=== PATIENT | male | born 1930 | race Caucasian/White ===

== ENCOUNTER 2018-01-31 13:17 | Inpatient (IN) | payer OTHER, BC ==
[~2018-01-31] VITALS: Ht 165.1 cm; Wt 65.0 kg
[2018-01-31 14:18] LABS: BASOPHIL (%) 0.3 % (0-1); BASOPHIL COUNT 0.1 K/uL (0-0.1); EOSINOPHIL (%) 0.3 % (0-5); EOSINOPHIL COUNT 0.1 K/uL (0-0.3); HEMATOCRIT 39.5 % (38.0-50.0); HEMOGLOBIN 13.9 G/DL (12.5-16.6); IMMATURE GRANULOCYTE (%) 0.7 % (0.0-0.7); LYMPHOCYTE (%) 15.9 % (15-42); LYMPHOCYTE COUNT 2.4 K/uL (1.0-2.8); MCH 32.6 PG (29.0-34.0); MCHC 35.2 G/DL (30.0-36.0); MCV 92.5 FL (86-99); MONOCYTE (%) 7.5 % (3-12); MONOCYTE COUNT 1.2 K/uL (0-0.8); NEUTROPHIL (%) 75.3 % (45-76); NEUTROPHIL COUNT 11.5 K/uL (1.8-6.4); PLATELET COUNT 154 K/uL (156-360); RBC DIS.WIDTH-CV 12.7 % (11.8-14.6); RED BLOOD COUNT 4.27 M/uL (4.00-5.50); WHITE BLOOD COUNT 15.3 K/uL (4.1-10.2)
[2018-01-31 14:23] LABS: INTER. NORMALIZED RATIO 1.2
[2018-01-31 14:28] LABS: CHLORIDE 100 mEq/L (99-109); POTASSIUM 4.2 mEq/L (3.7-5.4); SODIUM 135 mEq/L (136-147)
[2018-01-31 14:29] LABS: GLUCOSE 208 mg/dL (70-99)
[2018-01-31 14:33] LABS: GFR ESTIMATE (CALCULATED) 21 mL/min/ (58.99-99999)
[2018-01-31 14:34] LABS: UREA NITROGEN (BUN) 54 mg/dL (9-23)
[2018-01-31 14:39] LABS: TROP-I INTERPRETATION NEGATIVE; TROPONIN-I 0.11 ng/mL (0.0-0.30)
[2018-01-31 18:50] LABS: HEMATOCRIT 40.1 % (38.0-50.0); HEMOGLOBIN 14.1 G/DL (12.5-16.6); MCV 92.4 FL (86-99)
[2018-01-31 20:30] VITALS: BP 129/63
[2018-01-31 23:00] VITALS: BP 113/61
[2018-02-01 01:11] LABS: HEMATOCRIT 35.8 % (38.0-50.0); HEMOGLOBIN 12.2 G/DL (12.5-16.6); MCV 92.5 FL (86-99)
[2018-02-01] MEDS ORDERED: AMARYL4 MG PO (01:25)
[2018-02-01] MEDS ORDERED: FINASTERIDE5 MG PO (01:25)
[2018-02-01] MEDS ORDERED: DIOVAN160 MG PO (01:26)
[2018-02-01] MEDS ORDERED: FLOMAX0.4 MG PO (01:26)
[2018-02-01] MEDS ORDERED: BETAPROSTATE PO (01:28)
[2018-02-01] MEDS ORDERED: ASPIR 8181 M1 PO (01:29)
[2018-02-01] MEDS ORDERED: CENTRUM FLAVOR1 EAC1 PO (01:29)
[2018-02-01] MEDS ORDERED: PRESERVISION A1 EAC2 PO (01:30)
[2018-02-01] MEDS ORDERED: VITAMIN D32000 UNI1 PO (01:30)
[2018-02-01] MEDS ORDERED: GLUCOPHAGE500 MG PO (01:31)
[2018-02-01] MEDS ORDERED: CALCIUM 500 +1 EACH PO (01:31)
[2018-02-01] MEDS ORDERED: GABAPENTIN400 MG PO (01:32)
[2018-02-01] MEDS ORDERED: IMBRUVICA280 MG PO (01:33)
[2018-02-01] MEDS ORDERED: ALLOPURINOL100 MG PO (01:33)
[2018-02-01] MEDS ORDERED: RECLAST5 MG/100 M IV (01:34)
[2018-02-01] MEDS ORDERED: AMLODIPINE BESY10 MG PO (01:34)
[2018-02-01 04:40] VITALS: BP 115/63
[2018-02-01 04:43] LABS: HEMATOCRIT 33.8 % (38.0-50.0); HEMOGLOBIN 11.8 G/DL (12.5-16.6); MCH 32.2 PG (29.0-34.0); MCHC 34.9 G/DL (30.0-36.0); MCV 92.1 FL (86-99); PLATELET COUNT 140 K/uL (156-360); RBC DIS.WIDTH-CV 12.4 % (11.8-14.6); RBC DIS.WIDTH-SD 42.4 % (39-53); RED BLOOD COUNT 3.67 M/uL (4.00-5.50)
[2018-02-01 04:44] LABS: HEMATOCRIT 33.5 % (38.0-50.0); HEMOGLOBIN 11.7 G/DL (12.5-16.6); MCV 91.8 FL (86-99)
[2018-02-01 04:52] LABS: CHLORIDE 105 mEq/L (99-109); POTASSIUM 3.7 mEq/L (3.7-5.4); SODIUM 135 mEq/L (136-147)
[2018-02-01 04:58] LABS: UREA NITROGEN (BUN) 41 mg/dL (9-23)
[2018-02-01 05:13] LABS: CREATININE 1.3 mg/dL (0.6-1.3); GFR ESTIMATE (CALCULATED) 55 mL/min/ (58.99-99999); GLUCOSE 71 mg/dL (70-99)
[2018-02-01 05:42] LABS: APPEARANCE BLOODY ((CLEAR)); BILIRUBIN NEGATIVE; BLOOD LARGE; COLOR RED ((YELLOW)); GLUCOSE (STRIP) 150; KETONES NEGATIVE; LEUKOCYTES NEGATIVE; NITRITE NEGATIVE; PROTEIN (STRIP) >=500; SPECIFIC GRAVITY 1.024 (1.000-1.030); UROBILINOGEN 0.2 MG/DL (0.2-1.0)
[2018-02-01 05:43] LABS: RED BLOOD CELLS TNTC /HPF (0-5)
[2018-02-01 07:46] VITALS: BP 118/59
[2018-02-01 08:13] LABS: HEMATOCRIT 33.8 % (38.0-50.0); HEMOGLOBIN 11.6 G/DL (12.5-16.6); MCV 91.8 FL (86-99)
[2018-02-01 11:34] VITALS: BP 113/55
[2018-02-01 15:50] VITALS: BP 128/60
[2018-02-01 16:12] LABS: HEMATOCRIT 32.5 % (38.0-50.0); MCV 92.9 FL (86-99)
[2018-02-01 19:15] VITALS: BP 126/60
[2018-02-01 23:50] VITALS: BP 113/56
[2018-02-02 01:51] LABS: HEMATOCRIT 31.3 % (38.0-50.0); MCV 91.8 FL (86-99)
[2018-02-02 03:52] VITALS: BP 122/56
[2018-02-02 05:04] LABS: BASOPHIL (%) 0.6 % (0-1); BASOPHIL COUNT 0.1 K/uL (0-0.1); EOSINOPHIL (%) 3.2 % (0-5); EOSINOPHIL COUNT 0.3 K/uL (0-0.3); HEMATOCRIT 30.7 % (38.0-50.0); HEMOGLOBIN 10.5 G/DL (12.5-16.6); IMMATURE GRANULOCYTE (%) 0.7 % (0.0-0.7); LYMPHOCYTE (%) 31.1 % (15-42); LYMPHOCYTE COUNT 2.6 K/uL (1.0-2.8); MCH 31.7 PG (29.0-34.0); MCHC 34.2 G/DL (30.0-36.0); MCV 92.7 FL (86-99); MONOCYTE (%) 6.6 % (3-12); MONOCYTE COUNT 0.6 K/uL (0-0.8); NEUTROPHIL (%) 57.8 % (45-76); NEUTROPHIL COUNT 4.8 K/uL (1.8-6.4); PLATELET COUNT 120 K/uL (156-360); RBC DIS.WIDTH-CV 12.5 % (11.8-14.6); RBC DIS.WIDTH-SD 42.6 % (39-53); RED BLOOD COUNT 3.31 M/uL (4.00-5.50); WHITE BLOOD COUNT 8.4 K/uL (4.1-10.2)
[2018-02-02 07:22] VITALS: BP 149/68
[2018-02-02 11:19] LABS: CHLORIDE 111 MEQ/L (99-109); POTASSIUM 3.6 MEQ/L (3.7-5.4); SODIUM 138 MEQ/L (136-147)
[2018-02-02 11:24] LABS: GFR ESTIMATE (CALCULATED) > 59 mL/min/ (58.99-99999); GLUCOSE 81 mg/dL (70-99)
[2018-02-02 11:25] LABS: CREATININE 0.7 MG/DL (0.6-1.3); UREA NITROGEN (BUN) 19 mg/dL (9-23)
[2018-02-02 11:34] VITALS: BP 135/73
[2018-02-02 12:09] LABS: HEMATOCRIT 32.2 % (38.0-50.0); MCV 92.5 FL (86-99)
[2018-02-02 15:31] VITALS: BP 144/65
[2018-02-02 18:18] LABS: HEMATOCRIT 34.1 % (38.0-50.0); HEMOGLOBIN 11.6 G/DL (12.5-16.6); MCV 92.7 FL (86-99)
[2018-02-02 21:00] VITALS: BP 163/72
[2018-02-03 00:34] LABS: HEMATOCRIT 32.1 % (38.0-50.0); HEMOGLOBIN 11.2 G/DL (12.5-16.6); MCV 91.5 FL (86-99)
[2018-02-03 00:55] VITALS: BP 134/61
[2018-02-03 05:53] VITALS: BP 134/64
[2018-02-03 06:19] LABS: HEMATOCRIT 32.5 % (38.0-50.0); MCH 31.2 PG (29.0-34.0); MCHC 33.8 G/DL (30.0-36.0); MCV 92.1 FL (86-99); PLATELET COUNT 146 K/uL (156-360); RBC DIS.WIDTH-CV 12.4 % (11.8-14.6); RBC DIS.WIDTH-SD 41.2 % (39-53); RED BLOOD COUNT 3.53 M/uL (4.00-5.50); WHITE BLOOD COUNT 8.3 K/uL (4.1-10.2)
[2018-02-03 06:51] LABS: CHLORIDE 111 MEQ/L (99-109); CREATININE 0.8 MG/DL (0.6-1.3); GFR ESTIMATE (CALCULATED) > 59 mL/min/ (58.99-99999); POTASSIUM 3.8 MEQ/L (3.7-5.4); SODIUM 140 MEQ/L (136-147); UREA NITROGEN (BUN) 11 mg/dL (9-23)
[2018-02-03 06:56] LABS: GLUCOSE 102 mg/dL (70-99)
[2018-02-03 08:00] VITALS: BP 165/68
[2018-02-03 11:52] VITALS: BP 142/69
[2018-02-03 11:59] LABS: HEMATOCRIT 33.2 % (38.0-50.0); HEMOGLOBIN 11.3 G/DL (12.5-16.6); MCV 91.2 FL (86-99)
[2018-02-03 15:35] VITALS: BP 149/65
[2018-02-03 17:54] LABS: HEMATOCRIT 33.5 % (38.0-50.0); HEMOGLOBIN 11.5 G/DL (12.5-16.6); MCV 91.5 FL (86-99)
[2018-02-03 21:00] VITALS: BP 155/70
[2018-02-04] VITALS: BP 138/66
[2018-02-04 00:51] LABS: HEMATOCRIT 30.1 % (38.0-50.0); HEMOGLOBIN 10.8 G/DL (12.5-16.6); MCV 90.1 FL (86-99)
[2018-02-04 06:00] VITALS: BP 147/64
[2018-02-04 06:04] LABS: HEMATOCRIT 30.7 % (38.0-50.0); HEMOGLOBIN 10.9 G/DL (12.5-16.6); MCH 32.1 PG (29.0-34.0); MCHC 35.5 G/DL (30.0-36.0); MCV 90.3 FL (86-99); PLATELET COUNT 148 K/uL (156-360); RBC DIS.WIDTH-CV 12.4 % (11.8-14.6); RBC DIS.WIDTH-SD 40.6 % (39-53); WHITE BLOOD COUNT 8.6 K/uL (4.1-10.2)
[2018-02-04 06:28] LABS: CHLORIDE 112 MEQ/L (99-109); CREATININE 0.6 MG/DL (0.6-1.3); GFR ESTIMATE (CALCULATED) > 59 mL/min/ (58.99-99999); GLUCOSE 118 mg/dL (70-99); POTASSIUM 3.4 MEQ/L (3.7-5.4); SODIUM 141 MEQ/L (136-147); UREA NITROGEN (BUN) 7 mg/dL (9-23)
[2018-02-04] MEDS ORDERED: ELIQUIS5 MG PO (11:38)
[2018-02-04 12:00] VITALS: BP 157/67
[2018-02-04] MEDS ORDERED: DIOVAN80 MG PO (12:39)
[2018-02-04] MEDS ORDERED: DENTA 5000 PLUS51 GM DT (12:45)
== END 2018-02-04 14:19 | disposition home health service (06) | DRG 175 ==
LOC: EME → EDBD 13:17 → 4EAST 17:50 → EDOF 17:50 → ENRESERV 17:55 → 4EAST 18:22 → ENRESERV 18:23 → 4EAST 20:29
PROVIDERS: Emergency Medicine; Hospitalist; Internal Medicine
DX: I26.99 Other pulmonary embolism without acute cor pulmonale (principal); J96.01 Acute respiratory failure with hypoxia; N13.8 Other obstructive and reflux uropathy; J98.11 Atelectasis; D72.829 Elevated white blood cell count, unspecified; C85.90 Non-Hodgkin lymphoma, unspecified, unspecified site; R31.0 Gross hematuria; Z97.8 Presence of other specified devices; K59.00 Constipation, unspecified; N40.1 Benign prostatic hyperplasia with lower urinary tract symptoms; E86.0 Dehydration; N28.1 Cyst of kidney, acquired; R33.8 Other retention of urine; N20.0 Calculus of kidney; N40.0 Benign prostatic hyperplasia without lower urinary tract symptoms; Z79.01 Long term (current) use of anticoagulants; S09.90XA Unspecified injury of head, initial encounter; W19.XXXA Unspecified fall, initial encounter; Y93.9 Activity, unspecified; R33.9 Retention of urine, unspecified; I10 Essential (primary) hypertension; C76.52 Malignant neoplasm of left lower limb; E11.9 Type 2 diabetes mellitus without complications; R55 Syncope and collapse
CPT/HCPCS: 70450; 71045; 71250; 72125; 74176; 78582; 80048; 81003; 82948; 84484; 85014; 85018; 85025; 85027; 85610; 85730; 86850; 86900; 86901; 93005; 93970; 99281; 99285; A9540; A9567; J1815; J7030

== ENCOUNTER 2018-04-23 05:23 | Day surgery (SDC) | payer OTHER, BC ==
[~2018-04-23] VITALS: Ht 165.1 cm; Wt 59.0 kg
[~2018-04-23 05:23] MED LIST: ALLOPURINOL100 MG PO; AMARYL4 MG PO; AMLODIPINE BESY10 MG PO; ASPIR 8181 M1 PO; BETAPROSTATE PO; CALCIUM 500 +1 EACH PO; CENTRUM FLAVOR1 EAC1 PO; DENTA 5000 PLUS51 GM DT; DIOVAN160 MG PO; DIOVAN80 MG PO; ELIQUIS5 MG PO; FINASTERIDE5 MG PO; FLOMAX0.4 MG PO; GABAPENTIN400 MG PO; GLUCOPHAGE500 MG PO; IMBRUVICA280 MG PO; MANDELAMINE PO; NEURONTIN400 MG PO; PRESERVISION A1 EAC2 PO; PROSCAR5 MG PO; RECLAST5 MG/100 M IV; VITAMIN D32000 UNI1 PO
[2018-04-23 06:24] VITALS: BP 159/74
[2018-04-23 11:31] VITALS: BP 139/64
[2018-04-23 16:25] VITALS: BP 153/65
[2018-04-23 20:15] VITALS: BP 141/71
[2018-04-24 00:22] VITALS: BP 141/71
[2018-04-24 03:31] VITALS: BP 148/72
[2018-04-24 08:35] VITALS: BP 128/64
[2018-04-24] MEDS ORDERED: SEPTRA DS TABL1 EACH PO (10:54)
[2018-04-24] MEDS ORDERED: LORTAB 5-325 M1 EACH PO (10:54)
== END 2018-04-24 11:25 | disposition home or self-care (01) ==
LOC: SDC 05:23 → 2EASTP 08:50 → ENRESERV 10:52 → SDC 13:31 → 2EASTP 04-24 11:25
PROVIDERS: Urology
PROC: 0V508ZZ Destruction of Prostate, Via Natural or Artificial Opening Endoscopic (ICD-10-PCS; principal; 2018-04-23)
DX: N40.1 Benign prostatic hyperplasia with lower urinary tract symptoms (principal); N13.8 Other obstructive and reflux uropathy; R33.8 Other retention of urine; I10 Essential (primary) hypertension; E11.9 Type 2 diabetes mellitus without complications; J44.9 Chronic obstructive pulmonary disease, unspecified; Z79.84 Long term (current) use of oral hypoglycemic drugs; Z86.711 Personal history of pulmonary embolism; Z79.82 Long term (current) use of aspirin
CPT/HCPCS: 82948; 88305; G0378; J0690; J3010